=== PATIENT | female | born 1985 | race African-American/Black ===

== ENCOUNTER 2022-04-05 01:23 | Emergency (ER) | payer OTHER ==
[2022-04-05] MEDS ORDERED: HYDROcodone/Acetaminophen 5/325 mg Tablet ONE (02:21)
== END 2022-04-05 02:40 | disposition home or self-care (01) ==
LOC: MADERS 01:23
DX: S62.324A Displaced fracture of shaft of fourth metacarpal bone, right hand, initial encounter for closed fracture (principal); I10 Essential (primary) hypertension; J45.909 Unspecified asthma, uncomplicated; Z79.899 Other long term (current) drug therapy; W19.XXXA Unspecified fall, initial encounter
CPT/HCPCS: 26600

== ENCOUNTER 2022-11-17 18:23 | Emergency (ER) | payer OTHER ==
[2022-11-17] MEDS ORDERED: Lorazepam 1 MG TAB ONE (18:54)
== END 2022-11-17 20:04 | disposition home or self-care (01) ==
LOC: MADERS 18:23
DX: F40.9 Phobic anxiety disorder, unspecified (principal); R00.0 Tachycardia, unspecified; I10 Essential (primary) hypertension; E66.9 Obesity, unspecified
CPT/HCPCS: 99283

== ENCOUNTER 2023-03-22 09:51 | Emergency (ER) | payer OTHER ==
[2023-03-22] MEDS ORDERED: Lidocaine 2% Viscous 100 ML BOTTLE ONE (10:34)
[2023-03-22] MEDS ORDERED: Lidocaine 1% PF 5 ML VIAL ONE ×2 (10:58→11:41)
[2023-03-22] MEDS ORDERED: cefTRIAXone (ROCEPHIN) 1 GM VIAL ONE (11:41)
== END 2023-03-22 12:28 | disposition home or self-care (01) ==
LOC: MADERS 09:51
DX: S02.42XA Fracture of alveolus of maxilla, initial encounter for closed fracture (principal); S01.511A Laceration without foreign body of lip, initial encounter; K08.89 Other specified disorders of teeth and supporting structures; I10 Essential (primary) hypertension; E66.9 Obesity, unspecified; W18.12XA Fall from or off toilet with subsequent striking against object, initial encounter; Y92.002 Bathroom of unspecified non-institutional (private) residence as the place of occurrence of the external cause; Z79.899 Other long term (current) drug therapy
CPT/HCPCS: 12011; 70486; 96372; J0696